=== PATIENT | male | born 1990 | race Caucasian/White ===

== ENCOUNTER 2016-12-12 01:33 | Emergency (ER) | payer BC, OTHER ==
[~2016-12-12] VITALS: Ht 172.7 cm; Wt 63.5 kg
[2016-12-12 01:35] VITALS: BP 155/90
--- NOTE | 2016-12-12 01:45 | NUR ---
AMBULATED TO ER BED 7
--- NOTE | 2016-12-12 01:58 | NUR ---
Patient being evaluated by physician at bedside.
[2016-12-12] MEDS ORDERED: KETOROLAC 30 MG/ML VIAL IVP ONE (02:00)
[2016-12-12] MEDS ORDERED: NACL 0.9% 1,000 ML IV ONE ×2 (02:00→02:55)
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
--- NOTE | 2016-12-12 02:15 | NUR ---
PT TAKEN TO CT
[2016-12-12 02:16] LABS: HEMATOCRIT 43.1 % (36-52); HEMOGLOBIN 13.9 g/dL (12.0-18.0); MEAN CORPUSCULAR HEMOGLOBIN 29 pg (27-31); MEAN CORPUSCULAR HGB CONC 32 g/dL (33-37); MEAN CORPUSCULAR VOLUME 90 fL (80-94); PLATELET COUNT (AUTO) 322 K/uL (140-450); RED BLOOD CELL COUNT(AUTO) 4.79 MIL/uL (4.20-6.10); RED CELL DISTRIBUTION WIDTH 13.2 % (11.6-13.7); WHITE BLOOD COUNT (AUTO) 10.3 K/uL (4.8-10.8)
[2016-12-12 02:24] LABS: LYMPHOCYTES % (MANUAL) 16 % (20-46); MONOCYTES % (MANUAL) 5 % (5-12)
[2016-12-12 02:25] LABS: CARBON DIOXIDE 32.2 mmol/L (21-32); CREATININE 1.4 mg/dL (0.7-1.3); POTASSIUM 4.2 mmol/L (3.5-5.1)
[2016-12-12 02:32] LABS: ALBUMIN 4.1 g/dL (3.4-5.0); TOTAL BILIRUBIN 0.1 mg/dL (0.0-1.0)
--- NOTE | 2016-12-12 03:33 | NUR ---
Patient does not wish to proceed with medical care recommended by DR YOUNG. Patient given information related to possible complications, up to and including , which could occur as a result of leaving hospital at this time. Patient verbalizes understanding of risks involved leaving against medical advice. Patient has signed AMA form.
== END 2016-12-12 03:32 | disposition left against medical advice (07) ==
LOC: MED 01:33
DX: N13.2 Hydronephrosis with renal and ureteral calculous obstruction (principal)
CPT/HCPCS: 36415; 74176; 80053; 85025; 96374; 99285; J1885; J7030

== ENCOUNTER 2017-02-20 16:29 | Emergency (ER) | payer OTHER ==
[~2017-02-20] VITALS: Ht 172.7 cm; Wt 68.0 kg
[2017-02-20 16:43] VITALS: BP 131/95
--- NOTE | 2017-02-20 17:28 | NUR ---
PATIENT TO ER BED 12
--- NOTE | 2017-02-20 17:30 | NUR ---
DR QUAN EVALUATING AAO PT WITH FATHER AND SISTER AT BEDSIDE
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
[2017-02-20 19:25] VITALS: BP 123/69
--- NOTE | 2017-02-20 19:25 | NUR ---
Patient discharged with v/s stable. Written and verbal after care instructions given and explained. Patient alert, oriented and verbalized understanding of instructions. Ambulatory with steady gait. All questions addressed prior to discharge. ID band removed. Patient advised to follow up with PMD. Rx of VISTARIL given. Patient educated on indication of medication including possible reaction and side effects. Opportunity to ask questions provided and answered.
== END 2017-02-20 19:25 | disposition home or self-care (01) ==
LOC: MED 16:29
DX: F19.10 Other psychoactive substance abuse, uncomplicated (principal); R20.2 Paresthesia of skin
CPT/HCPCS: 70450; 72125; 99284